=== PATIENT | female | born 1935 | race Caucasian/White ===

== ENCOUNTER → 2016-03-07 | Outpatient (CLI) | payer OTHER, BC ==
[~2016-03-07] MED LIST: ACET1TAB84 PO; CALC500C3 PO; CARV25TA2 PO; CYCL0.052 OPB; CZR50 PO; FLUT0.0529; GABA400C PO; HYDR25TA4 PO; LOSA1TAB PO; MIRA1TAB3 PO; MONT1TAB3 PO; OXYC-57 PO; OXYC1TAB3 PO; PIRO-104 PO; SENNTAB23 PO; TRAM-10 PO; TRIATAB3 PO; WARF2TAB PO
== END | disposition home or self-care (01) ==
LOC: C.RDSM 14:54
PROVIDERS: ATTEND Physical Medicine & Rehabilitation Sports Medicine
DX: Z96.611 Presence of right artificial shoulder joint (principal); Z96.653 Presence of artificial knee joint, bilateral

== ENCOUNTER → 2016-03-22 | Outpatient (CLI) | payer OTHER, BC ==
--- NOTE | 2016-03-22 08:58 | DIAGNOSTIC IMAGING REPORT ---
ABDOMINAL WALL ULTRASOUND CLINICAL HISTORY: Abdominal bulge/mass at the umbilical region COMPARISON STUDY: No previous studies for comparison. FINDINGS: There is a midline umbilical region bowel containing hernia. This is nonreducible. IMPRESSION: Small, bowel containing midline hernia, which appears to correlate with the patient's palpable abnormality Electronically signed by: Jake Dow M.D. 03/22/2016 8:56 AM Dictated Date/Time: 03/22/2016 8:55 AM
== END | disposition home or self-care (01) ==
LOC: C.ULTR 08:09
PROVIDERS: ATTEND Family Medicine
DX: K46.9 Unspecified abdominal hernia without obstruction or gangrene (principal)

== ENCOUNTER 2016-05-19 06:40 | Observation (INO) | payer OTHER, BC ==
[2016-05-03 10:34] VITALS: BMI 44.0
--- NOTE | 2016-05-03 10:55 | PAT Medication Instructions ---
Service Date May 03, 2016. Current Home Medication List Acetaminophen (Tylenol Arthritis Ext Rel), 650 MG PO PRN Calcium Carbonate (Tums), 1-2 TAB PO PRN Carvedilol (Coreg), 25 MG PO BID Cyclosporine (Ophth) (Restasis), 1 DROP OPB BID Fluticasone Propionate (Nasal) (Flonase), 2 SPRAYS NA QPM Gabapentin (Neurontin), 400 MG PO TID Hydrochlorothiazide (Hctz), 25 MG PO QAM Losartan Potassium (Cozaar), 25 MG PO QAM Mirabegron (Myrbetriq Er), 50 MG PO HS Montelukast Sodium (Singulair), 10 MG PO QPM Tramadol (Ultram), 50 MG PO Q8H PRN for Pain Medication Instructions For Your Scheduled Surgery - Hold the following medications the morning of surgery: Hydrochlorothiazide (Hctz), 25 MG PO QAM Losartan Potassium (Cozaar), 25 MG PO QAM Calcium Carbonate (Tums), 1-2 TAB PO PRN - Take the following medications the morning of surgery with a sip of water: Carvedilol (Coreg), 25 MG PO BID Cyclosporine (Ophth) (Restasis), 1 DROP OPB BID Tramadol (Ultram), 50 MG PO Q8H PRN for Pain (may take if needed up to 4 hours prior to surgery) Gabapentin (Neurontin), 400 MG PO TID Acetaminophen (Tylenol Arthritis Ext Rel), 650 MG PO PRN (may take if needed up to 4 hours prior to surgery) - Take the following medications as scheduled the night before surgery: Carvedilol (Coreg), 25 MG PO BID Cyclosporine (Ophth) (Restasis), 1 DROP OPB BID Tramadol (Ultram), 50 MG PO Q8H PRN for Pain Mirabegron (Myrbetriq Er), 50 MG PO HS Montelukast Sodium (Singulair), 10 MG PO QPM Gabapentin (Neurontin), 400 MG PO TID Fluticasone Propionate (Nasal) (Flonase), 2 SPRAYS NA QPM Acetaminophen (Tylenol Arthritis Ext Rel), 650 MG PO PRN If you have any questions please call us at [phone] or [phone] or [phone]
[2016-05-03 11:24] LABS: BASO % 0.7 %; BASO ABS # 0.03 K/uL (0-0.2); COMPLETE YES; EOS % 1.1 %; HEMATOCRIT 40.2 % (37-47); IG% 0.2 %; LYMPH % 25.7 %; LYMPH ABS # 1.14 K/uL (1.2-3.4); MEAN CELL VOLUME 85.5 fL (80-100); MEAN CORPUSCULAR HEMOGLOBIN 27.9 pg (25-34); MEAN CORPUSCULAR HGB CONC 32.6 g/dl (32-36); MEAN PLATELET VOLUME 10.6 fL (7.4-10.4); MONO % 5.4 %; NEUT % 66.9 %; PLATELET COUNT 222 K/uL (130-400); WHITE BLOOD COUNT 4.44 K/uL (4.8-10.8)
[2016-05-03 11:37] LABS: PROTHROMBIN TIME (PATIENT) 10.7 SECONDS (9.0-12.0)
[2016-05-03 11:44] LABS: BUN/CREATININE RATIO 24.7 (10-20); CALCIUM 9.8 mg/dl (8.5-10.1); CREATININE 1.2 mg/dl (0.60-1.20); POTASSIUM 4.3 mmol/L (3.5-5.1)
[~2016-05-19] VITALS: Ht 154.9 cm; Wt 105.4 kg
[2016-05-19] VITALS (9 sets, daily range): BP systolic 127–179; BP diastolic 59–90; PULSE 47–63; TEMP 36.3–36.6; O2SAT 96–99; Ht 154.9 cm; Wt 105.4 kg
[~2016-05-19 06:40] MED LIST changes: +CEFAZOLIN 2000 MG/60 ML D5W IV SCH; -CZR50 PO; +HEPARIN SOD 5000 UNIT/0.5 ML CARP SC SCH; +LACTATED RINGER'S 1000ML 1,000 ML IV SCH; -OXYC-57 PO; -OXYC1TAB3 PO; -PIRO-104 PO; -SENNTAB23 PO; -TRIATAB3 PO; -WARF2TAB PO
[2016-05-19] MEDS ORDERED: MIDAZOLAM HCL 1 MG/ML 2ML VIAL ONE (08:42)
[2016-05-19] MEDS ORDERED: FENTANYL CITRATE INJ 50 MCG/1 ML 2 ML VIAL ONE ×2 (08:43)
[2016-05-19] MEDS ORDERED: BUPIVACAINE/EPINEPHRINE 0.5% MPF 1:200,000 30 ML VIAL ONE (08:43)
--- NOTE | 2016-05-19 08:44 | History & Physical Bridge Note ---
H&P Re-Evaluation Bridge Note: I have examined the patient, reviewed the History & Physical and in the interval since the performance of the History & Physical I have noted the following changes of clinical significance: No changes noted
[2016-05-19] MEDS ORDERED: ARISTA ABSORBABLE HEMOSTAT 3GM TOP ONE (09:59)
[2016-05-19] MEDS ORDERED: GLYCOPYRROLATE INJ 0.2 MG/ML VIAL ONE (10:19)
[2016-05-19] MEDS ORDERED: DEXAMETHASONE SOD INJ 4 MG/ML VIAL ONE (10:19)
[2016-05-19] MEDS ORDERED: LIDOCAINE HCL 2% 2 ML VIAL (20MG/ML) ONE (10:19)
[2016-05-19] MEDS ORDERED: ONDANSETRON INJ 2 MG/ML 2 ML VIAL ONE (10:19)
[2016-05-19] MEDS ORDERED: NEOSTIGMINE METHYLSULFATE 5 MG/5 ML SYR ONE (10:19)
[2016-05-19] MEDS ORDERED: PROPOFOL IV EMULSION 10 MG/ML 20 ML VIAL IV ONE (10:19)
[2016-05-19] MEDS ORDERED: ROCURONIUM BROMID 50MG/5ML SYR ONE (10:19)
[2016-05-19] MEDS ORDERED: EpHEDrine SULFATE INJ 50 MG/ML AMP IV PRN (10:45)
[2016-05-19] MEDS ORDERED: ONDANSETRON INJ 2 MG/ML 2 ML VIAL IV PRN ×2 (10:45→11:00)
[2016-05-19] MEDS ORDERED: LABETALOL HCL IV 5 MG/ML 20ML IV PRN (10:45)
[2016-05-19] MEDS ORDERED: MEPERIDINE HCL 25 MG/ML CARP IV PRN (10:45)
[2016-05-19] MEDS ORDERED: ATROPINE SULFATE 0.1 MG/ML 5ML SYR IV PRN (10:45)
[2016-05-19] MEDS ORDERED: HYDROmorphone INJ 1 MG/ML SYR IV PRN (10:45)
[2016-05-19] MEDS ORDERED: ACETAMINOPHEN 325 MG TAB PO PRN (11:00)
[2016-05-19] MEDS: FENTANYL CITRATE INJ 50 MCG/1 ML 2 ML VIAL IV PRN ×2 (11:00→11:05)
[2016-05-19] MEDS ORDERED: MoRPHine SULFATE 4 MG/ML 1 ML CARP\\VIAL IV PRN ×2 (11:00)
[2016-05-19] MEDS ORDERED: MoRPHine SULFATE 2 MG/ML CARP IV PRN (11:00)
[2016-05-19] MEDS ORDERED: OXYCODONE HCL IR 5 MG TAB (IMMEDIATE RELEASE) PO PRN ×2 (11:00)
--- NOTE | 2016-05-19 11:07 | [facility] Operative Report ---
Operative Report Operative Date May 19, 2016. Pre-Operative Diagnosis Umbilical Hernia Post-Operative Diagnosis large umbilical hernia with omental and colon incarceration Procedure(s) Performed open hernia repair with enterolysis Surgeon Dr Quintero Hollock Maker Surgeon(s) Conor Bell PGY1 Estimated Blood Loss 50ML Findings large hernia with colon/omentum incarceration Drains nba Complication(s) None Disposition Recovery Room / PACU I attest to the content of the Intraoperative Record and any orders documented therein. Any exceptions are noted below.
--- NOTE | 2016-05-19 11:25 | Anesthesiology Progress Note ---
Anesthesia Post Op Note Date & Time May 19, 2016 at 11:25 Vital Signs Pain Intensity: 2 Vital Signs Past 12 Hours Date Time Temp Pulse Resp B/P Pulse Ox O2 Delivery O2 Flow Rate FiO2 05/19/16 11:20 36.2 48 16 169/61 100 Nasal Cannula 2 05/19/16 10:55 48 15 05/19/16 10:55 47 15 100 05/19/16 10:52 179/73 05/19/16 10:50 46 12 100 05/19/16 10:50 46 12 05/19/16 10:46 143/79 05/19/16 10:45 48 13 05/19/16 10:45 48 13 100 05/19/16 10:41 170/74 05/19/16 10:40 53 95 05/19/16 10:40 36.8 52 14 170/74 97 Mask 10 05/19/16 10:40 53 05/19/16 07:23 36.6 52 20 155/68 96 Room Air Notes Mental Status: alert / awake / arousable, participated in evaluation Pt Amnestic to Procedure: Yes Nausea / Vomiting: adequately controlled Pain: adequately controlled Airway Patency, RR, SpO2: stable & adequate BP & HR: stable & adequate Hydration State: stable & adequate Anesthetic Complications: no major complications apparent
[2016-05-19] MEDS ORDERED: IV FLUIDS COMPLETED PRN (12:45)
[2016-05-19] MEDS: GABAPENTIN 400 MG CAP PO SCH ×2 (13:32→20:51)
[2016-05-19] MEDS: D5NSS + 20MEQ KCL 1,000 ML IV SCH ×2 (13:33→20:51)
[2016-05-19] MEDS: LOSARTAN POTASSIUM 25 MG TAB PO SCH (13:40)
--- NOTE | 2016-05-19 15:11 | OPERATIVE REPORT ---
DATE OF OPERATION: 05/19/2016 PREOPERATIVE DIAGNOSIS: Umbilical hernia. POSTOPERATIVE DIAGNOSIS: Umbilical hernia with bowel and omental incarceration. PROCEDURES: Open umbilical hernia repair and enterolysis. SURGEON: Dr. Quintero. ESTIMATED BLOOD LOSS: Approximately 50 mL. COMPLICATIONS: No immediate. ANESTHESIA: General. The patient tolerated the procedure well. OPERATIVE NOTE: After informed consent was obtained, the patient was taken to the operating suite and placed in supine position. After successful intubation, the abdomen was sterilely prepped and draped in usual fashion. I made a curvilinear infraumbilical incision with a 15 blade scalpel and carried it down through the soft tissue using electrocautery. We used traction countertraction to take this incision down to the fascia. There was a very very large hernia sac found at the umbilicus. In fact, I was unable to free it from the surrounding umbilical stalk and I had to open the sac to see exactly what was in it. When I opened this very large sac I found large amounts of omentum as well as portion of the transverse colon within it. The hernia defect itself was quite small and the colon as well as omentum had adhesed to the fascia in the soft tissue. It was rather tedious surgery and more difficult than expected. I was able to take down the entire hernia sac which again was quite large. I did this using primarily Harmonic scalpel. There was a piece of poor looking omentum that I tied and cut off and excised. I was then able to get my finger into the defect and I had to extend the hernia defect again using electrocautery. Once I made it large enough that I could get my finger underneath I tediously went around and took down adhesions from the bowel to the abdominal wall and soft tissue until I had the omentum and colon completely freed up in 360 degrees. Once I did this, I was then able to dunk the bowel and the remainder of the omentum back into the abdominal cavity. There did not appear to be any injury to either. Once we did this, I was unable to grab the fascial edges with More clamps and elevate it. We continued to excise the remainder of the soft tissue peritoneal lining. Once we had the sac completely excised, I then irrigated the wound. There appeared to be adequate hemostasis. I then closed the defect using #1 Ethibond in an interrupted [id number] fashion. Because of the bowel and poor looking omentum, etc. and her age, I decided that the risk benefit of mesh did not warrant mesh placement. I thoroughly irrigated the wound. I then repexed the umbilical stalk back to the fascia using 0 Vicryl. Once I did this, I then placed a 7 flat Antonio-Magallon drain to help prevent seroma and hematoma formation and brought out through a separate stab incision. Next, I placed Ana in the entire wound bed again to help reduce hematoma, seroma formation. I then closed the defect in multiple layers using 0 Vicryl for the deep layers, 2-0 Vicryl for the mid layers and 3-0 Monocryl for the skin. Some Marcaine was injected around it for postoperative analgesia and a sterile dressing was applied. We sutured the drain to the skin using 2-0 silk. The patient was awakened, extubated, and transferred to recovery in stable condition. I attest to the content of the Intraoperative Record and any orders documented therein. Any exceptio ns are noted below.
[2016-05-19] MEDS: CEFAZOLIN IV 2,000 MG in DEXTROSE 5% 50ML 50 ML IV SCH (15:44)
[2016-05-19] MEDS: CARVEDILOL 25 MG TAB PO SCH (20:52)
[2016-05-19] MEDS ORDERED: MONTELUKAST SOD 10 MG TAB PO SCH (21:00)
[2016-05-19] MEDS ORDERED: NURSING VERBAL MED ORDER ONE (21:45)
[2016-05-19] MEDS ORDERED: MIRABEGRON ER 25 MG TAB PO SCH (22:00)
[2016-05-20] MEDS: CEFAZOLIN IV 2,000 MG in DEXTROSE 5% 50ML 50 ML IV SCH (00:08)
[2016-05-20 03:45] VITALS: BP 121/64; PULSE 63; TEMP 36.6; O2SAT 97
[2016-05-20] MEDS: D5NSS + 20MEQ KCL 1,000 ML IV SCH (04:29)
[2016-05-20 06:07] LABS: BASO % 0.2 %; BASO ABS # 0.01 K/uL (0-0.2); COMPLETE YES; IG% 0.3 %; LYMPH % 9.4 %; MEAN CELL VOLUME 83.6 fL (80-100); MEAN CORPUSCULAR HEMOGLOBIN 27.6 pg (25-34); MEAN PLATELET VOLUME 10.3 fL (7.4-10.4); MONO % 7.8 %; NEUT % 82.3 %; PLATELET COUNT 184 K/uL (130-400); RED BLOOD COUNT 3.59 M/uL (4.2-5.4); WHITE BLOOD COUNT 6.37 K/uL (4.8-10.8)
[2016-05-20 06:49] LABS: BUN/CREATININE RATIO 15.1 (10-20); CALCIUM 8.4 mg/dl (8.5-10.1); CREATININE 1.1 mg/dl (0.60-1.20); POTASSIUM 3.8 mmol/L (3.5-5.1)
[2016-05-20 07:23] VITALS: BP 130/76; PULSE 59; TEMP 36.6; O2SAT 97
--- NOTE | 2016-05-20 08:16 | Surgery Progress Note ---
Surgery Progress Note Date of Service May 20, 2016. Subjective Post OP Day: 1 + feeling well feeling well. out of bed/ambulating pain controlled no n/v Objective Vital Signs: Date Time Temp Pulse Resp B/P Pulse Ox O2 Delivery O2 Flow Rate FiO2 05/20/16 07:59 Room Air 05/20/16 07:23 36.6 59 18 130/76 97 Room Air 05/20/16 03:45 36.6 63 18 121/64 97 Room Air 05/20/16 00:10 Room Air 05/19/16 22:53 36.6 63 18 127/59 96 Room Air 05/19/16 19:26 36.6 63 17 169/89 96 Room Air 05/19/16 16:24 36.3 52 19 170/82 96 Room Air 05/19/16 15:30 Room Air 05/19/16 14:40 54 18 178/82 98 05/19/16 13:38 50 16 179/81 96 05/19/16 12:55 54 16 170/74 98 05/19/16 12:18 49 15 156/90 99 05/19/16 11:40 Nasal Cannula 2.0 05/19/16 11:40 36.4 47 16 150/74 96 Nasal Cannula 2.0 05/19/16 11:40 96 Nasal Cannula 2.0 05/19/16 11:30 48 15 142/75 100 Nasal Cannula 2 05/19/16 11:20 36.2 48 16 169/61 100 Nasal Cannula 2 05/19/16 11:06 49 17 05/19/16 11:06 52 17 173/76 98 05/19/16 11:03 178/72 05/19/16 11:01 48 15 100 05/19/16 11:01 48 15 05/19/16 10:56 48 13 105/81 100 05/19/16 10:56 48 13 05/19/16 10:55 48 15 05/19/16 10:55 47 15 100 05/19/16 10:52 179/73 05/19/16 10:50 46 12 100 05/19/16 10:50 46 12 05/19/16 10:46 143/79 05/19/16 10:45 48 13 05/19/16 10:45 48 13 100 05/19/16 10:41 170/74 05/19/16 10:40 53 95 3/16/17 10:40 36.8 52 14 170/74 97 Mask 10 05/19/16 10:40 53 General Appearance: no apparent distress Abdomen: non distended, soft Incision(s): clean, dry, intact Laboratory Results: Results Past 24 Hours Test 05/20/16 05:38 Range/Units White Blood Count 6.37 4.8-10.8 K/uL Red Blood Count 3.59 4.2-5.4 M/uL Hemoglobin 9.9 12.0-16.0 g/dL Hematocrit 30.0 37-47 % Mean Corpuscular Volume 83.6 80-100 fL Mean Corpuscular Hemoglobin 27.6 25-34 pg Mean Corpuscular Hemoglobin Concent 33.0 32-36 g/dl Platelet Count 184 130-400 K/uL Mean Platelet Volume 10.3 7.4-10.4 fL Neutrophils (%) (Auto) 82.3 % Lymphocytes (%) (Auto) 9.4 % Monocytes (%) (Auto) 7.8 % Eosinophils (%) (Auto) 0.0 % Basophils (%) (Auto) 0.2 % Neutrophils # (Auto) 5.24 1.4-6.5 K/uL Lymphocytes # (Auto) 0.60 1.2-3.4 K/uL Monocytes # (Auto) 0.50 0.11-0.59 K/uL Eosinophils # (Auto) 0.00 0-0.5 K/uL Basophils # (Auto) 0.01 0-0.2 K/uL RDW Standard Deviation 44.6 36.4-46.3 fL RDW Coefficient of Variation 14.6 11.5-14.5 % Immature Granulocyte % (Auto) 0.3 % Immature Granulocyte # (Auto) 0.02 0.00-0.02 K/uL Sodium Level 138 136-145 mmol/L Potassium Level 3.8 3.5-5.1 mmol/L Chloride Level 100 98-107 mmol/L Carbon Dioxide Level 32 21-32 mmol/L Anion Gap 6.0 3-11 mmol/L Blood Urea Nitrogen 17 7-18 mg/dl Creatinine 1.10 0.60-1.20 mg/dl Est Creatinine Clear Calc Drug Dose 46.4 ml/min Estimated GFR () 55.3 Estimated GFR (Non- 47.7 BUN/Creatinine Ratio 15.1 10-20 Random Glucose 141 70-99 mg/dl Calcium Level 8.4 8.5-10.1 mg/dl Assessment & Plan pod #1. doing great minimal nba output. will remove ok for d/c instructions given
[2016-05-20] MEDS ORDERED: OXYC1TAB3 PO (08:18)
--- NOTE | 2016-05-20 08:19 | Discharge Instructions ---
Discharge Instructions Date of Service May 20, 2016. Admission Reason for Admission: Umbilical Hernia Discharge Discharge Diagnosis / Problem: incarcerated hernia Discharge Goals Goal(s): Decrease discomfort, Improve function Activity Recommendations Activity Limitations: as noted below Lifting Limitations: no more than 10 pounds Shower/Bathe: tomorrow . Instructions / Follow-Up Instructions / Follow-Up call [phone] if you have any problems/questions. f/u dr. quintero in 1-2 weeks. Current Hospital Diet Patient's current hospital diet: Regular Diet Discharge Diet Recommended Diet: Regular Diet Procedures Procedures Performed: Umbilical hernia repair Pending Studies Studies pending at discharge: no Medical Emergencies . Who to Call and When: Medical Emergencies: If at any time you feel your situation is an emergency, please call 911 immediately. . Non-Emergent Contact Non-Emergency issues call your: Primary Care Provider, Surgeon Call Non-Emergent contact if: temperature is above 101, wound has increased drainage, wound has increased redness, wound has increased pain . "Provider Documentation" section prepared by Kamaljit Quintero. VTE Core Measure Inpt VTE Proph given/why not?: Unfractionated heparin SQ, SCD's
[2016-05-20] MEDS: LOSARTAN POTASSIUM 25 MG TAB PO SCH (08:53)
[2016-05-20] MEDS: CARVEDILOL 25 MG TAB PO SCH (08:53)
[2016-05-20] MEDS: GABAPENTIN 400 MG CAP PO SCH (08:53)
[2016-05-20 09:00] VITALS: BP 130/76; PULSE 59; TEMP 36.6; O2SAT 97
[2016-05-20] MEDS ORDERED: ENOXAPARIN 40 MG/0.4 ML SYR SQ SCH (09:00)
--- NOTE | 2016-05-31 09:18 | DISCHARGE SUMMARY ---
DISCHARGE DIAGNOSIS: Ventral hernia. SUMMARY REPORT: This 80-year-old female who was brought to [facility] to undergo an elective periumbilical hernia repair. Originally the plan was to be discharged home on the same day. The procedure went well other than the hernia was more dangerous hernia than expected. It had a fair amount of bowel incarceration and the repair itself was more difficult than I had planned for. I opted to place a drain and felt that with the patient's age that she should be in the hospital for observation and pain control overnight. Following the procedure she was transferred to the medical surgical floor. She had no postop problems and by postoperative day #1 was tolerating a diet and her pain was controlled. Her drain output was scant and so I removed it in the hospital. On postoperative day #1 the patient was deemed stable for discharge. She was given written and verbal discharge instructions and discharged to home on 05/20/2016.
== END 2016-05-20 10:08 | disposition home or self-care (01) ==
LOC: ENRESERVDT → ENRESERVTM → C.ACU 06:40 → C.MSW 11:01
PROVIDERS: ADMIT Surgery; ATTEND Surgery
DX: K42.0 Umbilical hernia with obstruction, without gangrene (principal); I12.9 Hypertensive chronic kidney disease with stage 1 through stage 4 chronic kidney disease, or unspecified chronic kidney disease; E66.9 Obesity, unspecified; K21.9 Gastro-esophageal reflux disease without esophagitis; N18.3 Chronic kidney disease, stage 3 (moderate); E78.5 Hyperlipidemia, unspecified; Z83.3 Family history of diabetes mellitus; Z82.49 Family history of ischemic heart disease and other diseases of the circulatory system; Z80.3 Family history of malignant neoplasm of breast; Z82.3 Family history of stroke; Z96.641 Presence of right artificial hip joint; Z96.651 Presence of right artificial knee joint

== ENCOUNTER → 2016-05-25 | Outpatient (CLI) | payer OTHER, BC ==
[~2016-05-25] MED LIST changes: -CEFAZOLIN 2000 MG/60 ML D5W IV SCH; -HEPARIN SOD 5000 UNIT/0.5 ML CARP SC SCH; -LACTATED RINGER'S 1000ML 1,000 ML IV SCH; +OXYC1TAB3 PO
[2016-05-25 17:55] LABS: BASO % 0.4 %; BASO ABS # 0.02 K/uL (0-0.2); COMPLETE YES; EOS % 7.6 %; HEMATOCRIT 34.3 % (37-47); IG% 0.6 %; LYMPH % 16.4 %; LYMPH ABS # 0.84 K/uL (1.2-3.4); MEAN CELL VOLUME 87.7 fL (80-100); MEAN CORPUSCULAR HEMOGLOBIN 27.6 pg (25-34); MEAN CORPUSCULAR HGB CONC 31.5 g/dl (32-36); MEAN PLATELET VOLUME 11.3 fL (7.4-10.4); MONO % 9.2 %; NEUT % 65.8 %; PLATELET COUNT 240 K/uL (130-400); RED BLOOD COUNT 3.91 M/uL (4.2-5.4); WHITE BLOOD COUNT 5.12 K/uL (4.8-10.8)
[2016-05-25 18:07] LABS: URINE APPEARANCE CLEAR (CLEAR); URINE BILIRUBIN NEG (NEG); URINE COLOR YELLOW; URINE NITRITE NEG (NEG); URINE PH 8.5 (4.5-7.5); URINE SPECIFIC GRAVITY 1.013 (1.000-1.030); UROBILINOGEN POS (NEG); ZZUR CULT IF INDIC CLEAN CATCH NO
[2016-05-25 18:14] LABS: MANUAL MICROSCOPIC REQUIRED? NO; REVIEW REQ? YES; URINE PROTIEN/CREAT RATIO 0.3 (0-0.2); URINE TOTAL PROTEIN 14.8 mg/dl (0-11.9)
[2016-05-25 18:14] LABS: BLOOD UREA NITROGEN 15 mg/dl (7-18); BUN/CREATININE RATIO 15.5 (10-20); CALCIUM 8.7 mg/dl (8.5-10.1); CARBON DIOXIDE 33 mmol/L (21-32); CHLORIDE 100 mmol/L (98-107); CREATININE 0.98 mg/dl (0.60-1.20); GLUCOSE 89 mg/dl (70-99); MAGNESIUM 2.5 mg/dl (1.8-2.4); SODIUM 139 mmol/L (136-145)
[2016-05-25 18:15] LABS: PHOSPHORUS 3.6 mg/dl (2.5-4.9)
== END | disposition home or self-care (01) ==
LOC: C.LABPVFM 11:17
PROVIDERS: ATTEND Internal Medicine Nephrology
DX: I12.9 Hypertensive chronic kidney disease with stage 1 through stage 4 chronic kidney disease, or unspecified chronic kidney disease (principal); N18.3 Chronic kidney disease, stage 3 (moderate); N28.9 Disorder of kidney and ureter, unspecified; E87.1 Hypo-osmolality and hyponatremia

== ENCOUNTER → 2016-09-01 | Outpatient (CLI) | payer OTHER, BC ==
--- NOTE | 2016-09-07 12:41 | CODING QUERY MEDICAL NECESSITY ---
CQSUPPORTING DIAGNOSIS NEEDED A supporting diagnosis is required for the test/procedure performed on this patient in order for us to be reimbursed by the patient's insurance. Please provide a supporting diagnosis for the following test/procedure listed below next to the test name along with your signature. *If there is no additional diagnosis for this patient that would support the following test/procedure please document that below next to the test/procedure. Test(s)/Procedure(s) that require a supporting diagnosis: MICHAEL 09/01/16 [employer] STUDY Provider Signature: Date: Thank you Brynn Ha Health Information Management Once completed, please kindly fax back to [phone] For questions please call [phone]
== END | disposition home or self-care (01) ==
LOC: C.MAMM 09:28
PROVIDERS: ATTEND Nurse Practitioner
DX: Z00.00 Encounter for general adult medical examination without abnormal findings (principal); Z78.0 Asymptomatic menopausal state

== ENCOUNTER → 2016-11-08 | Outpatient (CLI) | payer OTHER, BC ==
[2016-11-08 12:30] LABS: BASO % 0.7 %; BASO ABS # 0.03 K/uL (0-0.2); COMPLETE YES; EOS % 1.4 %; HEMATOCRIT 35.6 % (37-47); IG% 0.5 %; LYMPH % 23.6 %; LYMPH ABS # 1.03 K/uL (1.2-3.4); MEAN CELL VOLUME 88.8 fL (80-100); MEAN CORPUSCULAR HEMOGLOBIN 29.9 pg (25-34); MEAN CORPUSCULAR HGB CONC 33.7 g/dl (32-36); MEAN PLATELET VOLUME 10.9 fL (7.4-10.4); MONO % 7.3 %; NEUT % 66.5 %; PLATELET COUNT 221 K/uL (130-400); RED BLOOD COUNT 4.01 M/uL (4.2-5.4); WHITE BLOOD COUNT 4.37 K/uL (4.8-10.8)
[2016-11-08 13:36] LABS: FERRITIN 73.7 ng/ml (8.0-388.0)
[2016-11-08 13:38] LABS: BLOOD UREA NITROGEN 31 mg/dl (7-18); BUN/CREATININE RATIO 28.6 (10-20); CALCIUM 9.2 mg/dl (8.5-10.1); CARBON DIOXIDE 30 mmol/L (21-32); CHLORIDE 97 mmol/L (98-107); GLUCOSE 97 mg/dl (70-99); MAGNESIUM 2.4 mg/dl (1.8-2.4); PHOSPHORUS 3.8 mg/dl (2.5-4.9); POTASSIUM 3.7 mmol/L (3.5-5.1); SODIUM 133 mmol/L (136-145)
== END | disposition home or self-care (01) ==
LOC: C.LABPVFM 09:33
PROVIDERS: ATTEND Internal Medicine Nephrology
DX: D64.9 Anemia, unspecified (principal); I10 Essential (primary) hypertension

== ENCOUNTER → 2016-11-10 | Outpatient (CLI) | payer OTHER, BC | END | disposition home or self-care (01) | LOC: C.LABPVFM 11:48 | PROVIDERS: ATTEND Nurse Practitioner | DX: R41.3 Other amnesia (principal) ==

== ENCOUNTER → 2017-05-16 | Outpatient (CLI) | payer OTHER, BC ==
[~2017-05-16] MED LIST changes: -OXYC1TAB3 PO
[2017-05-16 12:46] LABS: BASO % 0.9 %; BASO ABS # 0.04 K/uL (0-0.2); EOS ABS # 0.09 K/uL (0-0.5); HEMATOCRIT 37.5 % (37-47); HEMOGLOBIN 12.4 g/dL (12.0-16.0); IG# 0.02 K/uL (0.00-0.02); LYMPH % 30.7 %; LYMPH ABS # 1.41 K/uL (1.2-3.4); MEAN CORPUSCULAR HEMOGLOBIN 29.1 pg (25-34); MEAN CORPUSCULAR HGB CONC 33.1 g/dl (32-36); MEAN PLATELET VOLUME 10.3 fL (7.4-10.4); MONO ABS # 0.55 K/uL (0.11-0.59); NEUT ABS # 2.48 K/uL (1.4-6.5); PLATELET COUNT 222 K/uL (130-400); RED CELL DISTRIBUTION WIDTH CV 13.5 % (11.5-14.5); RED CELL DISTRIBUTION WIDTH SD 43.5 fL (36.4-46.3); WHITE BLOOD COUNT 4.59 K/uL (4.8-10.8)
[2017-05-16 13:32] LABS: BLOOD UREA NITROGEN 24 mg/dl (7-18); CARBON DIOXIDE 31 mmol/L (21-32); CREATININE 1.08 mg/dl (0.60-1.20); GLUCOSE 79 mg/dl (70-99); POTASSIUM 3.7 mmol/L (3.5-5.1); SODIUM 134 mmol/L (136-145)
[2017-05-16 13:33] LABS: PHOSPHORUS 4.3 mg/dl (2.5-4.9)
== END | disposition home or self-care (01) ==
LOC: C.LABPVFM 10:55
PROVIDERS: ATTEND Internal Medicine Nephrology
DX: N18.3 Chronic kidney disease, stage 3 (moderate) (principal)